=== PATIENT | female | born 1990 | race Caucasian/White ===

== ENCOUNTER → 2025-08-05 08:17 | Outpatient (CLI) | payer OTHER, SELFPAY ==
--- NOTE | 2025-08-05 08:19 | DI.MG.S_ITS ---
MM screening mammo BI: 08/05/2025. BI-RADS: 1 CLINICAL: 35-year old female for bilateral screening mammogram. Tyrer-Cuzick lifetime risk of 15.9%. No personal or first-degree family history of breast cancer. Current reported family history of breast cancer: maternal grandmother. PRIOR EXAMS: No prior examinations available. MAMMOGRAPHY TECHNIQUE: 2D and 3D (tomosynthesis) digital mammographic views obtained, with additional images as needed for full coverage. Current study was also evaluated with a Computer Aided Detection (CAD) system. DENSITY D. The breasts are extremely dense, which lowers the sensitivity of mammography. MAMMOGRAPHY FINDINGS Bilateral: No suspicious mass, asymmetry, microcalcification, or other abnormality seen. IMPRESSION: * No evidence of malignancy. RECOMMENDATIONS Bilateral * Annual screening mammography beginning at age 40. OVERALL ASSESSMENT CATEGORY BI-RADS-1: Negative. The [employer] recommends annual screening mammography beginning at age 40 for women with average risk of breast cancer. ELECTRONICALLY SIGNED: Ann Pollard M.D. on 08/22/2025 at 03:11:09 PM PT Interpreting Station ID: [id number]
== END ==
LOC: MAMMO 08:18
PROVIDERS: PCP Family Medicine; Referring Provider Family Medicine; Visit Provider Family Medicine
DX: Z12.31 Encounter for screening mammogram for malignant neoplasm of breast (principal); R92.333 Mammographic heterogeneous density, bilateral breasts; Z80.3 Family history of malignant neoplasm of breast
CPT/HCPCS: 77063; 77067